=== PATIENT | male | born 1980 | race Caucasian/White ===

== ENCOUNTER 2019-03-31 23:31 | Emergency (ER) | payer BC, OTHER ==
[2019-03-31 23:54] VITALS: BP 141/89; PULSE 64
--- NOTE | 2019-04-01 00:01 | EDM.PDOC ---
ED HPI GENERAL MEDICAL PROBLEM - General Chief Complaint: Chest Pain Stated Complaint: chest injury Time Seen by Provider: 03/31/19 23:51 Source of Information: Reports: Patient History Limitations: Reports: No Limitations - History of Present Illness INITIAL COMMENTS - FREE TEXT/NARRATIVE: This is a 39-year-old male. Tonight he was working in his shop and he had a 55 gallon drum that was filled with 45 gallons of waste material he was up on a forklift type palate and as he grabbed a barrel to tip it over the Libby slipped out from underneath it and the barrel came down and struck the edge of it struck him in his upper sternum. This barrel had been up maybe about 5 feet or so when he tried to tip it over and it struck him. He was knocked back and down but he did not hit his head and he denies any back injury or extremity injuries. He does have central anterior chest pain with deep breathing and with movement of his muscles. He is in no distress at this time and he is breathing normally. He has not had any nausea or vomiting. Chest Pain Score (Numeric/FACES): 8 - Related Data Allergies Allergy/AdvReac Type Severity Reaction Status Date / Time ANITIOTIC Allergy Nausea Uncoded 04/04/14 13:07 Home Meds: Home Meds . [No Known Home Meds] 04/04/14 [History] Past Medical History - Past Health History Medical/Surgical History: Denies Medical/Surgical History ED ROS GENERAL - Review of Systems Review Of Systems: See Below Constitutional: Denies: Fever, Chills HEENT: Reports: No Symptoms Respiratory: Reports: Other (As per HPI) Cardiovascular: Reports: No Symptoms Endocrine: Reports: No Symptoms GI/Abdominal: Denies: Abdominal Pain : Reports: No Symptoms Musculoskeletal: Reports: Other (Anterior chest pain) Skin: Reports: No Symptoms Neurological: Reports: No Symptoms Psychiatric: Reports: No Symptoms Hematologic/Lymphatic: Reports: No Symptoms ED EXAM, GENERAL - Physical Exam Exam: See Below Exam Limited By: No Limitations General Appearance: Alert, WD/WN, Mild Distress Eye Exam: Bilateral Eye: Normal Inspection Ears: Normal External Exam Nose: Normal Inspection Throat/Mouth: Normal Inspection, Normal Lips, Normal Voice, No Airway Compromise Head: Atraumatic, Normocephalic Neck: Supple, Non-Tender Respiratory/Chest: No Respiratory Distress, Lungs Clear, Other (Good bilateral breath sounds, but deep breathing causes sternal pain and across the anterior chest pain but he is in no distress with breathing, movement of his arms or twisting causes increased pain in the anterior chest as well) Cardiovascular: Regular Rate, Rhythm, No Murmur GI/Abdominal: Soft Back Exam: Full Range of Motion Extremities: Normal Inspection, Normal Range of Motion Neurological: Alert, Oriented Psychiatric: Normal Affect, Normal Mood Skin Exam: Warm, Dry Course - Vital Signs Last Recorded V/S: Last Vital Signs Temp 97.6 F 03/31/19 23:53 Pulse 64 03/31/19 23:53 Resp 18 03/31/19 23:53 BP 141/89 H 03/31/19 23:53 Pulse Ox 100 03/31/19 23:53 - Orders/Labs/Meds Orders: Active Orders 24 hr Category Date Time Status Chest w Cont [CT] Stat Exams 03/31/19 23:57 Taken Sodium Chloride 0.9% [Saline Flush] Med 04/01/19 00:02 Active 10 ml FLUSH ONETIME PRN Medication Orders Sodium Chloride (Saline Flush) 10 ml FLUSH ONETIME PRN PRN Reason: KEEP VEIN OPEN Last Admin: 04/01/19 00:37 Dose: 10 ml Meds: Medications Generic Name Dose Route Start Last Admin Trade Name Freq PRN Reason Stop Dose Admin Sodium Chloride 10 ml 04/01/19 00:02 04/01/19 00:37 Saline Flush FLUSH 10 ml ONETIME PRN Administration KEEP VEIN OPEN Discontinued Medications Generic Name Dose Route Start Last Admin Trade Name Freq PRN Reason Stop Dose Admin Iopamidol 80 ml 04/01/19 00:02 04/01/19 00:37 Isovue-300 (61%) IVPUSH 04/01/19 00:03 80 ml ONETIME ONE Administration - Radiology Interpretation Free Text/Narrative:: The scan of the chest did not show any acute abnormalities and no fractures it was noted to have some noncalcified pulmonary nodules but the patient appears to be at low risk no follow-up was indicated. - Re-Assessments/Exams Free Text/Narrative Re-Assessment/Exam: 04/01/19 01:24 I spoke to the patient regarding the CT scan results. I also spoke to him about the noncalcified pulmonary nodules but since he is at low risk with no history of smoking or other known pulmonary factors he does not need to have follow-up at this time. We talked about using ice to the chest taking ibuprofen or Aleve and being very careful about using his arms since he has a contusion to his chest. Departure - Departure Time of Disposition: :24 Disposition: Home, Self-Care 01 Condition: Fair Clinical Impression: Contusion of muscle Contusion of chest wall Qualifiers: Encounter type: initial encounter Laterality: unspecified laterality Qualified Code(s): S20.219A - Contusion of unspecified front wall of thorax, initial encounter Contusion of sternum Qualifiers: Encounter type: initial encounter Qualified Code(s): S20.219A - Contusion of unspecified front wall of thorax, initial encounter - Discharge Information *PRESCRIPTION DRUG MONITORING PROGRAM REVIEWED*: Not Applicable *COPY OF PRESCRIPTION DRUG MONITORING REPORT IN PATIENT CHARITY: Not Applicable Instructions: Chest Contusion, Adult, [id number] Referrals: PCP,Not In Area [Primary Care Provider] - Forms: ED Department Discharge, ED Return to Work/School Form Additional Instructions: Very careful activity over the next week to 7 days, try to avoid any sort of straining or lifting with your arms and cross body movements with your arms, realize the tomorrow you are going to be more sore than you are now, use ice to your chest on and off for the next 2 days and then you may start using some heat , take some ibuprofen or Aleve as needed for the soreness, no strenuous lifting for the next 7 to 10 days, follow-up with your family doctor later this week for recheck or return to the ER if your symptoms worsen Sepsis Event Note - Evaluation Sepsis Screening Result: No Definite Risk - Focused Exam Vital Signs: Vital Signs Temp Pulse Resp BP Pulse Ox 03/31/19 23:53 97.6 F 64 18 141/89 H 100 Date Exam was Performed: 04/01/19 Time Exam was Performed: 01:23 - My Orders Last 24 Hours: My Active Orders 03/31/19 23:57 Chest w Cont [CT] Stat 04/01/19 00:02 Sodium Chloride 0.9% [Saline Flush] 10 ml FLUSH ONETIME PRN - Assessment/Plan Last 24 Hours: My Active Orders 03/31/19 23:57 Chest w Cont [CT] Stat 04/01/19 00:02 Sodium Chloride 0.9% [Saline Flush] 10 ml FLUSH ONETIME PRN
[2019-04-01] MEDS ORDERED: Sodium Chloride 0.9% 10 ML Syringe FLUSH PRN (00:02)
[2019-04-01] MEDS ORDERED: Iopamidol 612 MG/ML 100 ML Bottle IVPUSH ONE (00:02)
--- NOTE | 2019-04-02 17:48 | CT ---
CT chest Technique: Multiple axial sections were obtained from above the lung apices inferiorly through the lung bases. Comparison: Previous chest x-ray of 04/04/14. Previous chest CT study of 12/09/12 is also available. Findings: Mediastinum and hilar regions show no abnormality. Aorta shows no aneurysm. No mediastinal hematoma is seen. No axillary adenopathy is seen. Visualized upper abdominal structures show no discrete abnormality. Lung window settings were reviewed. No acute parenchymal process is seen within either side of the chest. Minimal atelectasis or scarring is noted within the left base. Several very small nodules measuring less than 5 mm are noted. No pleural effusions are seen. Bone window settings were reviewed. No discrete rib fracture is appreciated. Mild compression deformity is seen within T1. No definite acute fracture line is appreciated. Other vertebral body heights are maintained within the thoracic spine. Lateral reconstructed sagittal views of the sternum appear intact. Impression: 1. Mild compression deformity of T1. No acute fracture lines are seen and this may be old. 2. Several small nodules measuring less than 5 mm. If patient is not a smoker, these can be ignored. If patient is a smoker, recommend noncontrast chest CT in one year. 3. Nothing acute is appreciated on CT study of the chest. Diagnostic code #3 This report was dictated in [employer] Standard Time I agree with preliminary report from [facility], finalized on 04/01/19, 2:11 AM Central Time
== END 2019-04-01 01:36 | disposition home or self-care (01) ==
LOC: JD.ED 23:31
DX: S20.219A Contusion of unspecified front wall of thorax, initial encounter (principal); Z88.8 Allergy status to other drugs, medicaments and biological substances; W20.8XXA Other cause of strike by thrown, projected or falling object, initial encounter
CPT/HCPCS: 71260; 99285; Q9967; 99283

== ENCOUNTER 2020-12-21 20:39 | Emergency (ER) | payer BC, OTHER ==
[2020-12-21] MEDS ORDERED: HYDROmorphone 1 MG/ML Syringe IM ONE (22:49)
[2020-12-21] MEDS ORDERED: Acetaminophen/oxyCODONE 325-5 MG Tab PO ONE (23:17)
--- NOTE | 2020-12-21 23:17 | EDM.PDOC ---
ED HPI GENERAL MEDICAL PROBLEM - General Chief Complaint: Upper Extremity Injury/Pain Stated Complaint: LT ARM INJURY Time Seen by Provider: 12/21/20 22:48 Source of Information: Reports: Patient, RN Notes Reviewed History Limitations: Reports: No Limitations - History of Present Illness INITIAL COMMENTS - FREE TEXT/NARRATIVE: Patient is a 40 year old male who presents to the ED for his left wrist injury. The patient was at a bar drinking, trying to help a friend, when he stumbled over his boots and fell backwards. He has had pain in his left wrist since then, there is a mild deformity noted at triage. Patient is denying any numbness/tingling into the hand. He is predominantly right handed. He did not take anything for pain prior to coming to the ER. He is denying any sick symptoms like fever or chills, cough or SOB, nausea/vomiting or diarrhea. left arm Pain Score (Numeric/FACES): 8 - Related Data Allergies Allergy/AdvReac Type Severity Reaction Status Date / Time ANITIOTIC Allergy Unknown Nausea Uncoded 12/21/20 21:26 Home Meds: Home Meds . [No Known Home Meds] 04/04/14 [History] Past Medical History - Past Health History Medical/Surgical History: Denies Medical/Surgical History HEENT History: Reports: None Cardiovascular History: Reports: None Respiratory History: Reports: Other (See Below) Other Respiratory History: walking Pneumonia Gastrointestinal History: Reports: None Genitourinary History: Reports: None Musculoskeletal History: Reports: Other (See Below) Other Musculoskeletal History: Left shoulder injury, Dislocated rib, broke bilat feet, surgery on bilat feet, Neurological History: Reports: None Psychiatric History: Reports: None Endocrine/Metabolic History: Reports: None Hematologic History: Reports: None Immunologic History: Reports: None Oncologic (Cancer) History: Reports: None Dermatologic History: Reports: None Social & Family History - Caffeine Use Caffeine Use: Reports: None Review of Systems - Review of Systems Review Of Systems: Comprehensive ROS is negative, except as noted in HPI. ED EXAM, GENERAL - Physical Exam Exam: See Below Exam Limited By: No Limitations General Appearance: Alert, WD/WN, No Apparent Distress Respiratory/Chest: No Respiratory Distress, Lungs Clear, Normal Breath Sounds, No Accessory Muscle Use, Chest Non-Tender Cardiovascular: Normal Peripheral Pulses, Regular Rate, Rhythm, No Edema Peripheral Pulses: 2+: Radial (L), Radial (R) Extremities: Normal Capillary Refill, Joint Swelling (mild amount of swelling to left wrist), Limited Range of Motion (of left wrist d/t pain) Neurological: Alert, Oriented, Normal Cognition, No Motor/Sensory Deficits Psychiatric: Normal Affect, Normal Mood Skin Exam: Warm, Dry, Intact, Normal Color, No Rash ED TRAUMA EXTREMITY PROCEDURES - Splinting Left Upper Extremity Splint Site: left wrist Pre-Procedure NV Status: Normal Post-Procedure NV Status: Normal Splint Material: Fiberglass Splint Design: Gutter (ulnar gutter short arm) Applied & Form Fitted By: Provider, Nurse Provider Post-Splint Application NV Check: NV Status Normal, Good Position Course - Orders/Labs/Meds Orders: Active Orders 24 hr Category Date Time Status Wrist Comp Min 3V Lt [CR] Stat Exams 12/21/20 21:24 Taken Meds: Medications Discontinued Medications Generic Name Dose Route Start Last Admin Trade Name Freq PRN Reason Stop Dose Admin Hydromorphone HCl 1 mg 12/21/20 22:49 Hydromorphone 1 Mg/Ml Syringe IM 12/21/20 22:50 ONETIME ONE - Re-Assessments/Exams Free Text/Narrative Re-Assessment/Exam: 12/21/20 23:16 Patient presents to the ED for his left wrist injury. He will be given 1 mg IM Dilaudid for pain management. Departure - Departure Time of Disposition: 23:17 Disposition: Home, Self-Care 01 Condition: Good Clinical Impression: Distal radius fracture, left Qualifiers: Encounter type: initial encounter Fracture type: closed Fracture morphology: other fracture Qualified Code(s): S52.592A - Other fractures of lower end of left radius, initial encounter for closed fracture - Discharge Information *PRESCRIPTION DRUG MONITORING PROGRAM REVIEWED*: Yes *COPY OF PRESCRIPTION DRUG MONITORING REPORT IN PATIENT CHARITY: No Instructions: Wrist Fracture Treated With Immobilization, [id number] Referrals: PCP,Not In Area [Primary Care Provider] - Additional Instructions: You have been evaluated in the ED for your left wrist injury. Your x-ray demonstrated a fracture of your left distal radius, this is a comminuted, and may need surgical management to repair. Please use ice as tolerated to the affected area. You may elevate the affected area to provide further relief from swelling. You may take Tylenol 500 mg or ibuprofen 600mg q6 hrs for pain relief. Please do so until you have a tolerable level of pain with activity. Do not exceed 4000mg Tylenol, Do not exceed 3200mg ibuprofen in a 24 hour time period. You were given a prescription for a strong pain medication, oxycodone/acetaminophen 5/325, please take 1 tab every 6 hours as needed for pain not relieved by Tylenol or ibuprofen alone. Please note this does contain Tylenol in it, so do not take more than 4000 mg in a 24-hour time span. These medications can be addictive, so please take as few as possible to achieve adequate pain control. These meds can also be quite constipating, recommend that you increase your oral fluid intake and take a stool softener like MiraLAX while taking these medications. Please call Ortho for follow-up and further evaluation Dr. Funes is our orthopedic surgeon, his office number is [phone]. Please call and set up an appointment as soon as possible for further management. Please return to ED if your symptoms should change or worsen. - My Orders Last 24 Hours: My Active Orders 12/21/20 21:24 Wrist Comp Min 3V Lt [CR] Stat - Assessment/Plan Last 24 Hours: My Active Orders 12/21/20 21:24 Wrist Comp Min 3V Lt [CR] Stat
--- NOTE | 2020-12-22 08:54 | CR ---
Left wrist: 4 views of the left wrist were obtained. Comparison: No prior studies available. Comminuted distal radial fracture is noted which shows articular extension. There is posterior impaction being seen with dorsal tilt of the distal radial articular margin. Small fracture is noted within the ulnar styloid process. Soft tissue swelling is noted. No additional bony abnormality is seen. Impression: 1. Distal radial fracture with articular extension and mild posterior impaction. 2. Ulnar styloid avulsion fracture. 3. Soft tissue swelling. Diagnostic code #3
== END 2020-12-21 23:39 | disposition home or self-care (01) ==
LOC: JD.ED 20:39
DX: S52.592A Other fractures of lower end of left radius, initial encounter for closed fracture (principal); S52.612A Displaced fracture of left ulna styloid process, initial encounter for closed fracture; Z88.1 Allergy status to other antibiotic agents; W18.09XA Striking against other object with subsequent fall, initial encounter; Y92.89 Other specified places as the place of occurrence of the external cause
CPT/HCPCS: 29125; 73110; 96372; 99283; J1170

== ENCOUNTER 2020-12-26 08:54 | Day surgery (SDC) | payer BC ==
[~2020-12-26 08:54] MED LIST: Lactated Ringers 1,000 ML IV SCH; Lidocaine 1%/Sod Bicarbonate in NS 8.4% 1 ML Syringe IDERM PRN; Sodium Chloride 0.9% 10 ML Syringe FLUSH PRN
[2020-12-26] MEDS ORDERED: Propofol 200 MG/20 ML SDV ONE ×2 (09:42→10:59)
[2020-12-26] MEDS ORDERED: Midazolam 1 MG/ML 2 ML SDV ONE (09:42)
[2020-12-26] MEDS ORDERED: fentaNYL 250 MCG/5 ML SDV ONE (09:43)
[2020-12-26] MEDS ORDERED: Lidocaine 1% 4 ML ONE (09:43)
[2020-12-26] MEDS ORDERED: Dexamethasone 4 MG/ML 5 ML MDV ONE (09:46)
[2020-12-26] MEDS ORDERED: Ondansetron 4 MG/2 ML SDV ONE (09:46)
--- NOTE | 2020-12-26 10:38 | PCM.PREANE ---
Preanesthetic Assessment - Procedure Proposed Procedure: Closed reduction with casting vs open reduction with internal fixation of left distal radius fracture - Anesthesia/Transfusion/Family Hx Anesthesia History: Prior Anesthesia Reaction Type of Anesthesia Reaction: Anesthesia Awareness (sounds like in a foot surgery which may have been a MAC anesthetic ) Family History of Anesthesia Reaction: No Transfusion History: No Prior Transfusion(s) Intubation History: Unknown - Review of Systems General: No Symptoms Pulmonary: No Symptoms Cardiovascular: No Symptoms Gastrointestinal: No Symptoms Neurological: No Symptoms Other: Reports: None - Physical Assessment NPO Status Date: 12/25/20 NPO Status Time: 20:30 Vital Signs: 97.4 72 159/92 95% 18 Height: 1.88 m Weight: 102 kg ASA Class: 2 Mental Status: Alert & Oriented x3 Airway Class: Mallampati = 2 Dentition: Reports: Normal Dentition Thyro-Mental Finger Breadths: 3 Mouth Opening Finger Breadths: 5 ROM/Head Extension: Full Lungs: Clear to Auscultation, Normal Respiratory Effort Cardiovascular: Regular Rate, Regular Rhythm - Allergies Allergies/Adverse Reactions: Allergies Allergy/AdvReac Type Severity Reaction Status Date / Time levofloxacin [From Levaquin] Allergy Nausea and Verified 12/25/20 14:45 Vomiting - Blood Blood Available: No - Anesthesia Plan Pre-Op Medication Ordered: None - Acknowledgements Anesthesia Type Planned: General Anesthesia Pt an Appropriate Candidate for the Planned Anesthesia: Yes Alternatives and Risks of Anesthesia Discussed w Pt/Guardian: Yes Pt/Guardian Understands and Agrees with Anesthesia Plan: Yes PreAnesthesia Questionnaire - Past Health History Medical/Surgical History: Denies Medical/Surgical History HEENT History: Reports: None Cardiovascular History: Reports: None Respiratory History: Reports: Other (See Below) Other Respiratory History: walking Pneumonia Gastrointestinal History: Reports: None Genitourinary History: Reports: None [employer] History: Reports: None Musculoskeletal History: Reports: Other (See Below) Other Musculoskeletal History: Left shoulder injury, Dislocated rib, broke bilat feet, surgery on bilat feet, Neurological History: Reports: None Psychiatric History: Reports: None Endocrine/Metabolic History: Reports: None Hematologic History: Reports: None Immunologic History: Reports: None Oncologic (Cancer) History: Reports: None Dermatologic History: Reports: None - Infectious Disease History Infectious Disease History: Reports: None - Past Surgical History Head Surgeries/Procedures: Reports: None HEENT Surgical History: Reports: Oral Surgery Cardiovascular Surgical History: Reports: None Respiratory Surgical History: Reports: None GI Surgical History: Reports: None Female Surgical History: Reports: None Male Surgical History: Reports: None Endocrine Surgical History: Reports: None Neurological Surgical History: Reports: None Musculoskeletal Surgical History: Reports: Other (See Below) Other Musculoskeletal Surgeries/Procedures:: bilateral bunionectomies Oncologic Surgical History: Reports: None Dermatological Surgical History: Reports: None - SUBSTANCE USE Tobacco Use Status *Q: Former Tobacco User Recreational Drug Use History: No - HOME MEDS Home Medications: Home Meds Ascorbic Acid [Vitamin C] 1,000 mg PO DAILY 12/25/20 [History] Echinacea 1,000 mg PO DAILY 12/25/20 [History] Ibuprofen 200 mg PO BID PRN 12/25/20 [History] Zinc 50 mg PO DAILY 12/25/20 [History] oxyCODONE HCl/Acetaminophen [Oxycodone-Acetaminophen 5-325] 1 - 2 tab PO Q6H PRN #40 12/25/20 [Rx] - CURRENT (IN HOUSE) MEDS Current Meds: Current Medications Lactated Ringer's (Ringers, Lactated) 1,000 mls @ 125 mls/hr IV ASDIRECTED CATARINO Stop: 12/26/20 23:00 Lidocaine/Sodium Bicarbonate (Lidocaine 1%/Sod Bicarbonate In Ns 8.4% 1 Ml Syringe) 0.25 ml IDERM ONETIME PRN PRN Reason: Prior to IV Start Stop: 12/26/20 18:00 Sodium Chloride (Sodium Chloride 0.9% 10 Ml Syringe) 10 ml FLUSH ASDIRECTED PRN PRN Reason: Keep Vein Open Stop: 12/26/20 18:00 Discontinued Medications Dexamethasone (Dexamethasone 4 Mg/Ml 5 Ml Mdv) Confirm Administered Dose 20 mg .ROUTE .STK-MED ONE Stop: 12/26/20 09:47 Fentanyl (Fentanyl 250 Mcg/5 Ml Sdv) Confirm Administered Dose 250 mcg .ROUTE .STK-MED ONE Stop: 12/26/20 09:44 Lidocaine HCl (Xylocaine-Mpf 1%) Confirm Administered Dose 4 mls @ as directed .ROUTE .STK-MED ONE Stop: 12/26/20 09:44 Midazolam HCl (Midazolam 1 Mg/Ml 2 Ml Sdv) Confirm Administered Dose 2 mg .ROUTE .STK-MED ONE Stop: 12/26/20 09:43 Ondansetron HCl (Ondansetron 4 Mg/2 Ml Sdv) Confirm Administered Dose 4 mg .ROUTE .STK-MED ONE Stop: 12/26/20 09:47 Propofol (Propofol 200 Mg/20 Ml Sdv) Confirm Administered Dose 200 mg .ROUTE .[facility]-MED ONE Stop: 12/26/20 09:43
[2020-12-26] MEDS ORDERED: ceFAZolin 1 GM Vial ONE (11:21)
[2020-12-26] MEDS ORDERED: Ketorolac 30 MG/ML SDV ONE (11:44)
[2020-12-26] MEDS ORDERED: Lactated Ringers 1,000 ML ONE (11:46)
--- NOTE | 2020-12-26 12:15 | PCM.POSTAN ---
POST ANESTHESIA ASSESSMENT - MENTAL STATUS Mental Status: Alert, Oriented - VITAL SIGNS Vital Signs: Last Vital Signs Temp 97.4 F 12/26/20 09:15 Pulse 72 12/26/20 09:15 Resp 18 12/26/20 09:15 BP 159/92 H 12/26/20 09:15 Pulse Ox 95 12/26/20 09:15 1208 143/103 97% 89 12 97.2 - RESPIRATORY Respiratory Status: Respiratory Rate WNL, Airway Patent, O2 Saturation Stable, Supplemental Oxygen - CARDIOVASCULAR CV Status: Pulse Rate WNL, Blood Pressure Stable - GASTROINTESTINAL GI Status: No Symptoms - PAIN Pain Score: 0 - POST OP HYDRATION Hydration Status: Adequate & Stable
[2020-12-26] MEDS ORDERED: fentaNYL 100 MCG/2 ML SDV IVPUSH PRN (12:32)
[2020-12-26] MEDS ORDERED: HYDROmorphone 0.5 MG/0.5 ML Syringe IVPUSH PRN (12:32)
[2020-12-26] MEDS ORDERED: Ondansetron 4 MG/2 ML SDV IVPUSH PRN (12:32)
--- NOTE | 2020-12-26 12:39 | PCM48HPAN ---
Post Anesthesia Note - EVALUATION WITHIN 48HRS OF ANESTHETIC Vital Signs in Normal Range: Yes Patient Participated in Evaluation: Yes Respiratory Function Stable: Yes Airway Patent: Yes Cardiovascular Function Stable: Yes Hydration Status Stable: Yes Pain Control Satisfactory: Yes Nausea and Vomiting Control Satisfactory: Yes Mental Status Recovered: Yes Vital Signs: Last Vital Signs Temp 36.2 C 12/26/20 12:08 Pulse 89 12/26/20 12:08 Resp 10 L 12/26/20 12:30 BP 136/102 H 12/26/20 12:30 Pulse Ox 96 12/26/20 12:30
[2020-12-26] MEDS ORDERED: Acetaminophen/oxyCODONE 325-5 MG Tab PO PRN (12:50)
--- NOTE | 2020-12-26 13:14 | PCM48HPAN ---
Post Anesthesia Note - EVALUATION WITHIN 48HRS OF ANESTHETIC Vital Signs in Normal Range: Yes Patient Participated in Evaluation: Yes Respiratory Function Stable: Yes Airway Patent: Yes Cardiovascular Function Stable: Yes Hydration Status Stable: Yes Pain Control Satisfactory: Yes (took pain pills) Nausea and Vomiting Control Satisfactory: Yes Mental Status Recovered: Yes Vital Signs: Last Vital Signs Temp 97.2 F 12/26/20 12:50 Pulse 89 12/26/20 12:08 Resp 18 12/26/20 12:50 BP 139/106 H 12/26/20 12:50 Pulse Ox 95 12/26/20 12:50
--- NOTE | 2020-12-26 13:39 | CR ---
Left wrist: 11 fluoroscopic spot views were obtained of the left wrist. Comparison: Prior left wrist exam of 12/21/20. Study shows reduction and fixation with fiberglass cast of previous distal radial fracture. Alignment on final films is very close to anatomic. Fracture is also noted within the ulnar styloid process which likewise is close to anatomic in alignment on final films. Fluoroscopy time is given as 14.2 seconds. Impression: 1. Reduction and fixation by fiberglass cast of previous distal radial fracture and ulnar styloid process fracture. Diagnostic code #2
[2020-12-26 14:44] VITALS: BP 124/80; PULSE 68
--- NOTE | 2020-12-31 18:21 | PCM.OPNOTE ---
- General Post-Op/Procedure Note Date of Surgery/Procedure: 12/26/20 Operative Procedure(s): closed reduction and casting of left distal radius fracture Pre Op Diagnosis: displaced left distal radius fracture Post-Op Diagnosis: Same Anesthesia Technique: General LMA Primary Surgeon: Lionel Funes Anesthesia Provider: Chris Hall Polymer Scientist: Ayleen Hay in mLs: 0 Complications: None Condition: Good
--- NOTE | 2021-01-06 11:54 | OR ---
DATE OF OPERATION: 12/26/2020 SURGEON: Lionel Funes MD OPERATION PERFORMED: Closed reduction and casting of left distal radius fracture. PREOPERATIVE DIAGNOSIS: Comminuted, displaced left distal radius fracture. POSTOPERATIVE DIAGNOSIS: Comminuted, displaced left distal radius fracture. ANESTHESIA: General LMA. ANESTHESIA PROVIDER: Chris Hall CRNA TOWN CLERK: Ayleen Hay PA-C. ESTIMATED BLOOD LOSS: Not applicable. COMPLICATIONS: None. CONDITION: Stable. DESCRIPTION OF PROCEDURE: The patient was identified in the preoperative holding area. Proper site was marked and identified by the surgeon. The patient was taken back to the operative theater, where after adequate anesthesia, a time-out was performed. At this time, a closed reduction maneuver was done to the left distal radius. At this time, the patient had near anatomic alignment with volar tilt, the radial height and radial inclination near anatomic. At this time, stockinette was applied, under cast padding was applied and a short-arm cast was applied and molded in ulnar deviation and traction. C-arm fluoroscopy was utilized showing nearly anatomically reduced on both AP lateral view and 23 degree lateral views. The patient was sent to the PACU in stable condition. Cast instructions were given. We will follow up in clinic in a week's time for x-ray through cast. [facility] /[id number]
== END 2020-12-26 14:06 | disposition home or self-care (01) ==
LOC: JD.SDS 08:54
PROVIDERS: ATTEND Orthopaedic Surgery
DX: S52.502A Unspecified fracture of the lower end of left radius, initial encounter for closed fracture (principal); Z88.8 Allergy status to other drugs, medicaments and biological substances; Z79.899 Other long term (current) drug therapy
CPT/HCPCS: 25605; 76000; A9270; J1100; J1885; J2250; J2405; J2704; J3010; J7120; 01820; J0690

== ENCOUNTER 2021-06-16 16:21 | Emergency (ER) | payer BC ==
[2021-06-16 16:39] VITALS: BP 144/96; PULSE 68
[2021-06-16] MEDS ORDERED: Sodium Chloride 0.9% 10 ML Syringe FLUSH PRN (17:08)
== END 2021-06-16 20:00 | disposition home or self-care (01) ==
LOC: JD.ED 16:21
DX: R10.31 Right lower quadrant pain (principal); Z88.1 Allergy status to other antibiotic agents
CPT/HCPCS: 36415; 74176; 74176-26; 80053; 81003; 85025; 86140; 99284; 99284-25